=== PATIENT | female | born 1955 | race Caucasian/White ===

== ENCOUNTER 2017-07-16 09:38 | Emergency (ER) | payer OTHER ==
[~2017-07-16] VITALS: Ht 157.5 cm; Wt 80.0 kg
[2017-07-16 09:41] VITALS: Ht 157.5 cm; Wt 80.0 kg
--- NOTE | 2017-07-16 10:53 | ERD ---
ER Documentation Chief Complaint Chief Complaint COUGH X 8 DAYS HPI 61-year-old female, with history of hypertension, presents to the emergency department complaining of worsening of cough for 8 days. The cough is described as productive, worse at night. Associated with subjective fever and general malaise. The patient has not tried any medications at this time but she is requesting a prescription for antibiotics. Denies chills, headaches, chest pain, shortness of breath. No flu vaccine this season ROS SYSTEMIC symptoms: Subjective fever, chills, no night sweats, no weight loss EYE symptoms: No blurred vision, no eye discharge OTOLARYNGEAL symptoms: No hearing loss. No ear pain, no sore throat CARDIOVASCULAR symptoms: No chest pain or discomfort, no palpitations. PULMONARY symptoms: Per HPI GASTROINTESTINAL symptoms: No abdominal pain, no nausea, no vomiting, no diarrhea MUSCULOSKELETAL symptoms: No arthralgias, no muscle aches. NEUROLOGY symptoms: No confusion, no syncope, no numbness or tingling. SKIN: No rashes Medications Home Meds Active Scripts Promethazine HCl/Codeine (Prometh-Codein 6.25-10 mg/5 ml) 5 Ml Syrup, 5 ML PO QHS for COUGH for 5 Days Prov:YANIRA MALONEY MD 07/16/17 Azithromycin* (Zithromax*) 250 Mg Tablet, 250 MG PO .ChuPACK DIRECTED, #6 TAB TAKE 500 MG (2 TABS) THE FIRST DAY THEN 250 MG (1 TAB) DAYS 2-5 Prov:YANIRA MALONEY MD 07/16/17 Physical Exam Vitals Vital Signs Date Time Temp Pulse Resp B/P Pulse Ox O2 Delivery O2 Flow Rate FiO2 07/16/17 09:41 97.6 63 18 160/79 99 Physical Exam Patient is in no acute distress, vital signs stable. Alert and fully oriented. EYES: PERRLA, EOMI, Sclera and conjunctiva appear normal. EARS: Canals clear, tympanic membranes WNL THROAT: Normal oropharynx. NECK: Supple, No lymphadenopathy. Full ROM without pain or tenderness. HEART: RRR, no rubs, murmurs, clicks or gallops. LUNGS: Clear to auscultation. ABDOMEN: Soft, non-tender without masses or hepatosplenomegaly. EXTREMITIES: No edema bilaterally. BACK: Full ROM, no deformity, normal back exam NEURO: Cranial nerves grossly intact, no motor or sensory deficit Procedures/MDM 61y/o female patient, presents to the ED c/o worsening of cough for 8 days. Vital signs stable, Physical exam unremarkable. Differential diagnosis include but not limited to: Respiratory infection bacterial/viral/fungal. Asthma/COPD, pneumonitis, allergies, GERD. Less likely foreign body aspiration, cardiac related, aspiration pneumonia, malignancy.. Physical examination and clinical presentation consistent most likely with upper respiratory infection, most likely viral etiology, therefore, antibiotics not indicated at this time however the patient insisted in a prescription for antibiotics. During the ED course the patient remained stable, no new complaints. Results and clinical impression discussed with patient who agrees with management. The patient is stable to be treated outpatient and will be discharged home with a Rx for azithromycin and promethazine with codeine at night. Side effects of prescribed medications (headache, rash, nausea, vomiting, diarrhea) were reviewed. Side effects of prescribed opiates (drowsiness, habituation) were reviewed. The patient was instructed to follow up with the primary care provider in the next 48h. If symptoms persist, worsen or new symptoms develop, then patient should return to the ED immediately. Instructions explained and given to patient in Turkish with acknowledgment and demonstrated understanding. Disclaimer: Inadvertent spelling and grammatical errors are likely due to EHR/ dictation software use and do not reflect on the overall quality of patient care. Also, please note that the electronic time recorded on this note does not necessarily reflect the actual time of the patient encounter. Departure Diagnosis: Primary Impression: Cough Additional Impression: Abnormal respiratory sounds Condition: Stable Additional Instructions: Muchas bright por [facility] para waldron servicio. Esperamos que en waldron visita a la radha de emergencia waldron problema medico haya sido solucionado y que se sienta mucho mejor. Para estar seguros que waldron mejoria sigue en proceso, le pedimos el favor de hacer deyanira johnson de seguimiento medico con waldron doctor primario en los proximos 2-4 alexander. Lleve con usted estos documentos y las medicinas recetadas. Si cresencio sintomas empeoran y no puede viky a waldron doctor, por favor regrese a radha de emergencia. En aliya que usted no tenga un mdico de atencin primaria: Llame al mdico o clnica comunitaria de referencia que aparece abajo yaquelin las horas de consultorio para hacer deyanira johnson para que le vean. CLINICAS: [facility] [phone] [facility] [phone] [facility] [phone] [address] [place] [phone] [place] [phone] [facility] [phone] YANIRA KEENE MD Jul 16, 2017 10:52
[2017-07-16] MEDS ORDERED: AZIT250T94 PO (11:34)
[2017-07-16] MEDS ORDERED: PROM5SYR2 PO (11:36)
== END 2017-07-16 12:03 | disposition home or self-care (01) ==
LOC: FTE 09:38
DX: R05 Cough (principal); R06.89 Other abnormalities of breathing
CPT/HCPCS: 99284

== ENCOUNTER 2017-11-19 13:45 | Emergency (ER) | END 2017-11-19 15:33 | disposition home or self-care (01) ==

== ENCOUNTER 2018-02-08 07:25 | Emergency (ER) | END 2018-02-08 11:23 | disposition home or self-care (01) ==

== ENCOUNTER 2018-12-12 11:13 | Emergency (ER) | payer OTHER ==
[~2018-12-12] VITALS: Ht 160 cm; Wt 70.2 kg
[~2018-12-12 11:13] MED LIST: ACET500C5 PO; AZIT250T PO; CIPR500T4 PO; DOXY100T20 PO; FAMO-96 PO; NAPR-985 PO; ONDA4TAB8 PO; PROM5SYR2 PO; TRAM50TA2 PO
[2018-12-12 11:16] VITALS: Ht 160 cm; Wt 70.2 kg
[2018-12-12] MEDS ORDERED: GUAI-158 PO (12:53)
[2018-12-12] MEDS ORDERED: D-ME473S2 PO (12:53)
[2018-12-12] MEDS ORDERED: BENZ-6 PO (12:53)
[2018-12-12] MEDS ORDERED: CETI10TA19 PO (12:53)
[2018-12-12 15:07] VITALS: BP 137/66; PULSE 65; RESP 16
--- NOTE | 2018-12-12 15:12 | ERD ---
ER Documentation Chief Complaint Chief Complaint ST, body aches, cough X 4 days HPI History of Present Illness: 63-year-old female with past history to include diabetes, hyperlipidemia, hypertriglycerides, GERD coming in today with complaint of sore throat, body aches, productive cough with phlegm white. Patient reports symptoms have been present for 4 days. Patient symptoms are nonprogressive. Patient denies sick contacts. Patient tolerating p.o. and fluids and food without difficulty. At home pharmacological/nonpharmacological treatment for symptoms: Denies Denies social concerns; Denies recent foreign travel ROS All systems reviewed and are negative except as per history of present illness. Medications Home Meds Active Scripts Guaifenesin/Dextromethorphan* (Guaifenesin* DM) 1 Each Tablet, 1 TAB PO Q12 PRN for COUGH/CONGESTION, #14 TAB.SA Prov:HILARIO BONNER V EQUIPMENT SPECIALIST 12/12/18 Benzonatate* (Tessalon Perle*) 100 Mg Capsule, 100 MG PO Q8H PRN for COUGH, #30 CAP Prov:HILARIO BONNER V EQUIPMENT SPECIALIST 12/12/18 Dextromethorphan Hb-Promethazine Hcl* (Promethazine DM* Syrup) 473 Ml Syrup, 5 ML PO QHS PRN for COUGH, #60 ML Prov:HILARIO BONNER NP 12/12/18 Cetirizine Hcl* (Cetirizine Hcl*) 10 Mg Tablet, 10 MG PO DAILY for COUGH/ALLERGIES/RUNNY NOSE, #30 TAB Prov:HILARIO BONNER V EQUIPMENT SPECIALIST 12/12/18 Tramadol HCl (Tramadol HCl) 50 Mg Tablet, 50 MG PO Q4 PRN for SEVERE PAIN LEVEL 7-10, #15 TAB Prov:HERSON MCCAULEY F 02/08/18 Acetaminophen* (Tylophen*) 500 Mg Capsule, 1 CAP PO Q6H PRN for MILD PAIN LEVEL 1-3, #20 CAP Prov:PASILAHERSON COLIN F 02/08/18 Famotidine* (Pepcid*) 20 Mg Tablet, 20 MG PO DAILY for 30 Days, TAB Prov:PASILACANDIDO COLINAR F 02/08/18 Ondansetron Hcl* (Zofran*) 4 Mg Tablet, 4 MG PO Q8H PRN for NAUSEA AND/OR VOMITING, #30 TAB Prov:PASCANDIDO DEVRIESAR F 02/08/18 Ciprofloxacin Hcl* (Ciprofloxacin Hcl*) 500 Mg Tablet, 500 MG PO BID for 7 Days, TAB Prov:HERSON MCCAULEY 02/08/18 Naproxen* (Naprosyn*) 500 Mg Tablet, 500 MG PO BID PRN for PAIN AND/OR INFLAMMATION, #30 TAB Prov:MARSHAL BERUMEN PA-C 11/19/17 Doxycycline Hyclate* (Doxycycline Hyclate*) 100 Mg Tablet.dr, 100 MG PO BID for 7 Days, TAB Prov:MARSHAL BERUMEN PA-C 11/19/17 Promethazine HCl/Codeine (Prometh-Codein 6.25-10 mg/5 ml) 5 Ml Syrup, 5 ML PO QHS for COUGH for 5 Days Prov:YANIRA MALONEY MD 07/16/17 Azithromycin* (Zithromax*) 250 Mg Tablet, 250 MG PO .ZPACK DIRECTED, #6 TAB TAKE 500 MG (2 TABS) THE FIRST DAY THEN 250 MG (1 TAB) DAYS 2-5 Prov:YANIRA MALONEY MD 07/16/17 Allergies Allergies: Coded Allergies: Penicillins (Verified Allergy, Unknown, rashes, 12/12/18) PMhx/Soc History of Surgery: Yes (franky breast SX, Appendectomy,Hysterectomy,ovary,CSx3) Anesthesia Reaction: No Hx Miscellaneous Medical Probl: Yes (HTN,Cholesterolemia,DM,Gastritis,Arthritis) Hx Alcohol Use: No Hx Substance Use: No Hx Tobacco Use: No Smoking Status: Never smoker FmHx Family History: diabetes; No coronary disease Physical Exam Vitals Vital Signs Date Temp Pulse Resp B/P (MAP) Pulse Ox O2 O2 Flow FiO2 Time Delivery Rate 12/12/18 65 16 137/66 98 Room Air 15:07 (89) 12/12/18 98.5 68 16 199/78 98 Room Air 14:24 (118) 12/12/18 99.0 73 18 187/79 99 11:16 (115) Physical Exam Const: No acute distress Head: Atraumatic Eyes: Normal Conjunctiva ENT: Normal External Ears, Nose. Mild erythema to oropharynx, no tonsillar exudate, 1+ tonsils. Neck: Full range of motion. No meningismus. Resp: Clear to auscultation bilaterally Cardio: Regular rate and rhythm, no murmurs Abd: Soft, non tender, non distended. Normal bowel sounds Skin: No petechiae or rashes Back: No midline or flank tenderness Ext: No cyanosis, or edema Neur: Awake and alert, no focal neuro deficits, no facial asymmetry Psych: Normal Mood and Affect Results 24 hrs Current Medications Medications Dose Sig/Layla Start Time Status Last (Trade) Ordered Route PRN Stop Time Admin Dose Reason Admin Clonidine 0.1 mg ONCE ONCE 12/12/18 DC 12/12/18 (Catapres) PO 14:00 13:51 12/12/18 14:01 Procedures/MDM ED course includes a thorough examination and history. Medications: Clonidine Imaging: -- Labs: -- Low suspicion for life-threatening medical emergency. Low suspicion for cardiopulmonary emergency requires hospitalization or immediate surgical intervention. Low suspicion for hypertensive emergency. Patient is asymptomatic to hypertension. patient presenting with constellation of symptoms likely representing viral syndrome/allergic rhinitis/hypertension as characterized by history, physical exam findings. No respiratory distress, otherwise relatively well appearing and nontoxic. Explained no need for antibiotics at this time. Important for follow-up evaluation to monitor progression of illness. Patient educated on diagnoses, prescriptions, follow-up care, return precautions. Strict return precautions given for worsening condition; questions answered discharge. Disposition for discharge with followup in 2 days with PCP/clinic. Blood Pressure Assessment: Patient's blood pressure was elevated (>120/80) but appears stable without evidence of hypertension emergency or urgency. The patient was counseled about the risks of hypertension and urged to pursue outpatient monitoring and therapy within a week with their primary care physician. Departure Diagnosis: Primary Impression: Viral syndrome Additional Impressions: Allergic rhinitis Allergic rhinitis trigger: unspecified Allergic rhinitis seasonality: unspecified Qualified Codes: J30.9 - Allergic rhinitis, unspecified Hypertension Hypertension type: unspecified Qualified Codes: I10 - Essential (primary) hypertension Condition: Stable Patient Instructions: Allergic Rhinitis, Pharyngitis, Viral, Viral Syndrome (Adult) Referrals: [facility] Usted se dupont hecho un examen mdico de control que le indica que no est en deyanira condicin que requiera tratamiento urgente en el Departamento de Emergencia. Un estudio ms profundo y el tratamiento de reeder condicin pueden esperar sin ningn riesgo hasta que usted sea atendida/o en el consultorio de reeder mdico o deyanira clnica. Es responsabilidad suya arreglar deyanira johnson para el seguimiento del aliya. MANEJO DE CONDICIONES NO URGENTES EN EL FUTURO 1) Si usted tiene un mdico de atencin primaria: Usted debera llamar a reeder mdico de atencin primaria antes de venir al departamento de emergencia. Despus de las horas de consultorio, reeder doctor o reeder asociado/a est disponible por telfono. El mdico o enfermero de gisell en el servicio telefnico puede asesorarle por reina medio para atender el problema, o aliya contrario se puede programar deyanira johnson. 2) Si usted no tiene un mdico de atencin primaria: Llame al mdico o clnica de referencia que aparece abajo yaquelin las horas de consultorio para hacer deyanira johnson para que le vean. CLINICAS: [facility] [phone] [facility] [phone] [address] [phone] [address] [facility]. [facility] [phone] [facility] [place] [phone] [facility]. [phone] [address] [facility] . [facility] () Usted se dupont hecho un examen mdico de control que le indica que no est en deyanira condicin que requiera tratamiento urgente en el Departamento de Emergencia. Un estudio ms profundo y el tratamiento de reeder condicin pueden esperar sin ningn riesgo hasta que usted sea atendida/o en el consultorio de reeder mdico o deyanira clnica. Es responsabilidad suya arreglar deyanira johnson para el seguimiento del aliya. MANEJO DE CONDICIONES NO URGENTES EN EL FUTURO 1) Si usted tiene un mdico de atencin primaria: Usted debera llamar a reeder mdico de atencin primaria antes de venir al departamento de emergencia. Despus de las horas de consultorio, reeder doctor o reeder asociado/a est disponible por telfono. El mdico o enfermero de gisell en el servicio telefnico puede asesorarle por reina medio para atender el problema, o aliya contrario se puede programar deyanira johnson. 2) Si usted no tiene un mdico de atencin primaria: Llame al mdico o condado institucions de referencia que aparece abajo yaquelin las horas de consultorio para hacer deyanira johnson para que le vean. SI USTED NO PUEDE PAGAR PARA AYAZ UN MEDICO puede ir a: [facility] [id number] [place] [address] [facility] [address] [place] [address] [facility] [address] [place] [address] [facility] [address] [place], [place] [id number] Additional Instructions: Muchas bright por permitirnos participar en reeder cuidado. Reeder arnaldo y seguridad es nuestra principal prioridad en [facility]. Es importante leer todas las instrucciones de florencia y la educacin que se proporcionan en reeder paquete de florencia. * No se necesitan antibiticos en chika momento. Llame a reeder mdico de atencin primaria MAANA para deyanira johnson yaquelin los prximos 2 a 4 velasco y lleve toda la informacin y los medicamentos recetados. Llene las recetas y siga exactamente las instrucciones de la etiqueta. -Cetirizina tasha antihistamnico que no debe causar somnolencia; tome chika medicamento todos los velasco para los sntomas de alergia / tos / secrecin nasal. --Benzonatate es un medicamento que ayuda con la supresin de la tos. Chika medicamento no le dianna sueo. --Guaifenesin / dextromethorphan (guaifenesin DM) es un medicamento que ayuda con la tos y la congestin de moco / trax. [address] chika medicamento diariamente segn lo prescrito. Chika medicamento no te adormecer. -Promethazine / dextromethorphan ayudar con tos y alergias. [address] chika medicamento por la noche. Chika medicamento puede causar somnolencia. Si los sntomas empeoran y reeder proveedor no est disponible, regrese inmediatamente al Departamento de Emergencias. ---- Thank you very much for allowing us to participate in your care. Your health and safety is our top priority at [facility]. It is important to read all discharge instructions and education provided in your discharge packet. *No antibiotics are needed at this time. Call your primary care doctor TOMORROW for an appointment during the next 2-4 days and bring all the information and medications prescribed. Have prescriptions filled and follow precisely the directions on the label. -Cetirizine as an antihistamine that should not cause drowsiness; take this medication every day for allergy-like symptoms/cough/runny nose. --Benzonatate is a medication that will help with cough suppression. This medication will not make you drowsy. --Guaifenesin/dextromethorphan (guaifenesin DM) is a medication that will help with cough as well as mucus/chest congestion. Take this medication daily as prescribed. tHis medication will not make you drowsy -Promethazine/dextromethorphan will help with cough and allergies. Take this medication at night. This medication can cause drowsiness. If the symptoms get worse and your provider is unavailable, return to the Emergency Department immediately. HILARIO BONNER NP Dec 12, 2018 15:12
== END 2018-12-12 15:09 | disposition home or self-care (01) ==
LOC: FTE 11:13
DX: B34.9 Viral infection, unspecified (principal); J30.9 Allergic rhinitis, unspecified; I10 Essential (primary) hypertension; E11.9 Type 2 diabetes mellitus without complications
CPT/HCPCS: Z7502; Z7610; 99283